=== PATIENT | female | born 1960 | race Caucasian/White ===

== ENCOUNTER 2018-07-21 07:30 | Day surgery (SDC) | payer MEDICAID ==
[2018-07-14 13:28] LABS: BASO % 0.5 % (0-6); EOS % 2.1 % (0-6); GRAN % 57.1 % (47-80); HEMATOCRIT 44.4 % (35.0-47.0); HEMOGLOBIN 14.1 gm/dl (11.6-16.0); MEAN CELL VOLUME 98.9 fl (81-97); MEAN CORPUSCULAR HEMOGLOBIN 31.4 pg (27-33); MEAN CORPUSCULAR HGB CONC 31.8 g/dl (32-36); MEAN PLATELET VOLUME 10.3 fl (7.4-10.4); MONO % 8.3 % (0-9); PLATELET COUNT 314 K/uL (130-400); RED BLOOD COUNT 4.49 M/uL (3.80-5.40); WHITE BLOOD COUNT W/O DIFF 6.7 K/uL (4.2-12.2)
[2018-07-14 13:54] LABS: BLOOD UREA NITROGEN 9 mg/dL (6-20); CREATININE 0.7 mg/dL (0.5-0.9); EST GLOMERULAR FILTRATION RATE > 60 mL/min; GLUCOSE,RANDOM 89 mg/dL (74-109)
[~2018-07-21 07:30] MED LIST: CEFAZOLIN 2 Gram 2 GM/50 ML BAG IVPB ONE; CELECOXIB 100 MG CAPSULE PO ONE; FAMOTIDINE 20MG TABLET PO ONE; MECLIZINE 25 MG TABLET PO ONE; METOCLOPRAMIDE 10 MG TABLET PO ONE
[2018-07-21] MEDS ORDERED: ROPIVACAINE HCL (NAROPIN) /PF 5MG/ML 20ML VIAL IV ONE (07:31)
[2018-07-21] MEDS ORDERED: BUPIVACAINE LIPOSOME 266MG/20ML VIAL IV ONE ×2 (07:31)
[2018-07-21] MEDS ORDERED: DEXAMETHASONE 4 MG/ML 1ML VIAL IVP ONE (07:31)
[2018-07-21] MEDS ORDERED: MIDAZOLAM HCL 2MG/2ML VIAL IV ONE (07:31)
[2018-07-21] MEDS ORDERED: BUPIVACAINE 0.25% W/EPI MPF 30ML VIAL IVP ONE (07:31)
[2018-07-21] MEDS ORDERED: LIDOCAINE 2% MDV (20MG/ML) 20ML VIAL IV ONE (07:31)
[2018-07-21] MEDS ORDERED: TRANEXAMIC ACID 1,000 MG/10 ML ML IV ONE (07:31)
[2018-07-21] MEDS ORDERED: PROPOFOL 10 MG/ML VIAL IV ONE (07:31)
[2018-07-21] MEDS ORDERED: 0.9 % SODIUM CHLORIDE 100ML 100 ML IV ONE (07:31)
[2018-07-21] MEDS ORDERED: OXYCODONE HCL/APAP 5MG/325MG TABLET PO PRN (11:14)
[2018-07-21] MEDS ORDERED: HYDROCODONE/APAP 5/325MG TABLET PO PRN ×2 (11:14)
[2018-07-21] MEDS ORDERED: ONDANSETRON HCL IV 4 MG/2 ML VIAL IVP PRN (11:15)
[2018-07-21] MEDS ORDERED: TRAMADOL HCL 50 MG TABLET PO PRN ×2 (11:15)
[2018-07-21] MEDS ORDERED: DIPHENHYDRAMINE HCL 25 MG CAPSULE PO PRN (11:15)
[2018-07-21] MEDS ORDERED: ZOLPIDEM TARTRATE 5 MG TABLET PO PRN (11:15)
[2018-07-21] MEDS ORDERED: NALOXONE 0.4 MG/1 ML VIAL IVP PRN (11:15)
[2018-07-21] MEDS ORDERED: METOCLOPRAMIDE HCL 10 MG/2 ML VIAL IVP PRN (11:15)
[2018-07-21] MEDS ORDERED: MAGNESIUM HYDROXIDE 30 ML UDC PO PRN (11:15)
[2018-07-21] MEDS ORDERED: SENNOSIDES/DOCUSATE SODIUM UD CAPSULE PO PRN (11:15)
[2018-07-21] MEDS ORDERED: AL HYDROX/MAG HYDROX 30ML UD PO PRN (11:15)
[2018-07-21] MEDS ORDERED: TRANEXAMIC ACID 1,000 MG in 0.9 % SODIUM CHLORIDE 100ML 100 ML IVPB ONE (14:00)
[2018-07-21] MEDS: HYDROMORPHONE HCL 2 MG/ML VIAL IV PRN ×2 (14:45→20:06)
[2018-07-21] MEDS: CEFAZOLIN 2 Gram 2 GM/50 ML BAG IVPB SCH (16:32)
--- NOTE | 2018-07-21 17:06 | Rehab Evaluation ---
Patient Information - Patient Information Diagnosis: L knee OA Ordered Treatment: PT Evaluate and Treat Status: Initial Evaluation Surgery: Yes (L TKA) Date of Surgery: 07/21/18 Past Medical/Surgical Hx: PAST MEDICAL/SURGICAL HISTORY Past Surgical History Hyst Shirley Causey PMH - Respiratory Hx Respiratory Disorders No PMH - Cardiovascular Hx Cardiovascular Disorders No Exercise Tolerance Good Hx of Migraines Yes: none for quite a while PMH - Neuro Hx Neurological Disorders Yes PMH - GI Hx Gastrointestinal Disorders No PMH - Hx Genitourinary Disorders No Comment: S/P Hyst PMH - Endocrine Hx Endocrine Disorders No PMH - Musculoskeletal Hx Musculoskeletal Disorders Yes Hx Arthritis Yes: left knee PMH - Psych Hx Psychiatric Problems Yes Hx Depression Yes PMH - Hematology/Oncology Hx Hematology/Oncology No Disorders Premorbid Status: Detail (The patient was independent with mobility prior to surgery.) Social History: Detail (The patient lives alone in a one story house with 2 to 3 steps at the enterance with no handrails. The patient's bathroom is equipped with a walk in shower with a hand held shower and a standard height toilet. The patient has a front wheeled walker.) Precautions: [place], Fall, Other (WBAT on the L LE.) - Time With Patient Total Time Spent With Patient (Min): 20 Treatment Procedures: Detail (Initial Evaluation) Subjective Information - Subjective Information Per Patient (The patient had complaints of L knee pain level 8 at the highest using 0- 10 pain scale.) Objective Data - Mental Status Patient Orientation: Oriented x3 - Visual Perception Appears within normal limits for therapeutic activities - ROM Not within normal limits (The patient's L knee AROM is limited s/p surgery, all other AROM was WNL.) - Strength/Tone Not within normal limits (The patient's L LE strength was not tested s/p surgery however was functional ie: the patient completed a SLR. R LE strength was intact.) - Bed Mobility Independent (supine to and from sit transfers were independent.) - Transfers Independent (Independent sit to and from stand transfers.) - Balance Balance Sitting: Good Balance Standing: Good - Sensation Intact - Gait Detail (The patient ambulated 30 feet x 1 with front wheeled walker WBAT on the L LE with supervision for safety. The patient's ambulation was limited secondary to pain.) Therapy Assessment - Therapy Assessment Detail (The patient's mobility was limited secondary to pain. Feel the patient will progress well however.) Problem List - Problem List Physical Therapy Problem List: Detail (1) L knee pain 2) Decreased L knee AROM 3 ) Decreased L LE strength) Goals - Goals Physical Therapy Goals: 1) The patient will ambulate with wheeled walker a distance of 50 plus feet independently. 2) The patient will ambulate on 3 steps using proper tecnique with supervision for safety. 3) The patient will be independent with HEP of TKA exercises. Prognosis - Prognosis Good Plan - Plan Physical Therapy Plan: 1-2 PT visits for gait training on levels and stairs and instruction in HEP.
[2018-07-21] MEDS: RINGERS SOLUTION,LACTATED 1,000 ML IV SCH (18:13)
[2018-07-21] MEDS: OXYCODONE HCL/APAP 5MG/325MG TABLET PO PRN (20:32)
[2018-07-21] MEDS ORDERED: MELATONIN 5 MG TABLET PO SCH (22:00)
[2018-07-21] MEDS: ASPIRIN 325 MG TAB ENTERIC-COATED PO SCH (22:23)
[2018-07-22] MEDS: OXYCODONE HCL/APAP 5MG/325MG TABLET PO PRN ×5 (00:30→10:24)
[2018-07-22] MEDS: HYDROMORPHONE HCL 2 MG/ML VIAL IV PRN ×4 (00:36→11:20)
[2018-07-22] MEDS: CEFAZOLIN 2 Gram 2 GM/50 ML BAG IVPB SCH ×2 (01:38→09:27)
[2018-07-22] MEDS: RINGERS SOLUTION,LACTATED 1,000 ML IV SCH (09:25)
[2018-07-22] MEDS: ASPIRIN 325 MG TAB ENTERIC-COATED PO SCH (09:28)
[2018-07-22] MEDS ORDERED: BUPROPION HCL 150 MG TAB.SR.12H PO SCH (10:00)
[2018-07-22] MEDS ORDERED: CELECOXIB 100 MG CAPSULE PO SCH (10:00)
[2018-07-22] MEDS ORDERED: ACETAMINOPHEN 325 MG TAB PO PRN (11:15)
--- NOTE | 2018-07-22 11:27 | Rehab Evaluation ---
Patient Information - Patient Information Diagnosis: L knee OA Ordered Treatment: OT Evaluate and Treat Status: Initial Evaluation Surgery: Yes (L TKA) Date of Surgery: 07/21/18 Past Medical/Surgical Hx: PAST MEDICAL/SURGICAL HISTORY Past Surgical History Hyst Shirley Causey PMH - Respiratory Hx Respiratory Disorders No PMH - Cardiovascular Hx Cardiovascular Disorders No Exercise Tolerance Good Hx of Migraines Yes: none for quite a while PMH - Neuro Hx Neurological Disorders Yes PMH - GI Hx Gastrointestinal Disorders No PMH - Hx Genitourinary Disorders No Comment: S/P Hyst PMH - Endocrine Hx Endocrine Disorders No PMH - Musculoskeletal Hx Musculoskeletal Disorders Yes Hx Arthritis Yes: left knee PMH - Psych Hx Psychiatric Problems Yes Hx Depression Yes PMH - Hematology/Oncology Hx Hematology/Oncology No Disorders Premorbid Status: Detail (The patient was independent with mobility, meal prep, laundry and home mgmt prior to surgery.) Social History: Detail (The patient lives alone in a one story house with 1 step at the entrance with no handrails. The patient's bathroom is equipped with a walk in shower with a hand held shower and a shower seat and a standard height toilet, no grab bars. The patient has walker and a cane. Her ex- will be moving back in with her and her sister will be staying for a while to assist if needed.) Precautions: [place], Fall, Other (WBAT on the L LE.) - Time With Patient Total Time Spent With Patient (Min): 35 Treatment Procedures: Detail (OT eval low complexity) Subjective Information - Subjective Information Per Patient Objective Data - Pain Pain Present: Yes (02/24) - Mental Status Patient Orientation: Oriented x3 - Visual Perception Appears within normal limits for therapeutic activities - ROM Within normal limits (Geoff UE AROM WNL) - Strength/Tone Within normal limits (Geoff UE strength WNL) - Coordination Appears within normal limits for therapeutic activities - Bed Mobility Independent (Ind with supine to sit and sit to supine.) - Transfers Independent (Ind with sit to stand from EOB.) - Balance Balance Sitting: Good Balance Standing: Good - Sensation Intact - ADL's/IADL's Detail (Pt educated and able to demonstrate learning of modified LE dressing techniques including doffing briefs and slipper socks and donning underwear, pants and tennis shoes. Pt educated re: kitchen and bathroom safety and modifications, she was able to verbalize understanding.) Therapy Assessment - Therapy Assessment Detail (Pt is Ind with modified LE dressing techniques.) Problem List - Problem List Physical Therapy Problem List: Detail (1) L knee pain 2) Decreased L knee AROM 3 ) Decreased L LE strength) Occupational Therapy Problem List: Detail (No current IP OT problems identified. ) Goals - Goals Physical Therapy Goals: 1) The patient will ambulate with wheeled walker a distance of 50 plus feet independently. 2) The patient will ambulate on 3 steps using proper tecnique with supervision for safety. 3) The patient will be independent with HEP of TKA exercises. Occupational Therapy Goals: No current IP OT goals identified. Prognosis - Prognosis Good Plan - Plan Physical Therapy Plan: 1-2 PT visits for gait training on levels and stairs and instruction in HEP. Occupational Therapy Plan: No further IP OT recommended. Thank you for this referral.
--- NOTE | 2018-07-22 11:47 | Physical Therapy Tx Note ---
Physical Therapy Tx Note - Treatment Note Tolerated: Fair Total Time Spent With Patient: 25 Physical Therapy Tx Note: Detail (The patient was in bed when PT arrived with ice on L knee. The patient had complaints of L knee pain and was tearful at times. The patient did not rate her pain using 0-10 pain scale. The patient ambulate with front wheeleed walker a distance of 60 feet x 1 WBAT on the L LE independently. The patient ambulated on steps with use of folded walker and railing using proper technique with supervison for safety. The patient ambulated with L knee in aprox 30 degrees of flexion ( Unable to acheive full extension). The patient completed the following TKA exercises: quad sets, gluteal sets, hamstring sets, ankle pumps, seated heel slides and assisted SLR using a strap. The patient was unable to acheive a SLR and had difficulty isolated quad. The patient complained of increased pain with knee extension and muscle cramping. Patient was assured quad weakness following surgery was common. The patient has met all inpatient Pt goals and is to continue with outpatient PT.) Physical Therapy Problem List: Detail (1) L knee pain 2) Decreased L knee AROM 3 ) Decreased L LE strength) Physical Therapy Goals: 1) The patient will ambulate with wheeled walker a distance of 50 plus feet independently. (Goal Met). 2) The patient will ambulate on 3 steps using proper tecnique with supervision for safety. (Goal Met). 3) The patient will be independent with HEP of TKA exercises. (Goal Met) Physical Therapy Plan: The patient is discharged from inpatient PT secondary to all PT inpatient goals have been met. The patient is to continue with outpatient PT.
--- NOTE | 2018-07-23 08:51 | Operative Note ---
DATE OF SURGERY: 07/21/2018 Surgeon: Joseph Bennett DO PREOPERATIVE DIAGNOSIS: Primary osteoarthritis of the left knee. POSTOPERATIVE DIAGNOSIS: Primary osteoarthritis of the left knee. OPERATION: Left total knee arthroplasty. DESCRIPTION OF PROCEDURE: This 58-year-old female was taken to the operating room and placed in the supine position on the operating room table. A spinal anesthetic was induced by the department of anesthesia. The left lower extremity was then elevated. It was prepped with Hibiclens and draped in the usual sterile fashion. It was exsanguinated and the tourniquet inflated to 300 mmHg. All scrub personnel wore personal isolation suits. DISCHARGE INSTRUCTIONS: An anterior longitudinal midline incision was made followed by a medial parapatellar arthrotomy incision. An intracondylar drill hole was made for the intramedullary alignment, luis and a 5-degree valgus 9 mm cut was made in the distal femur. The wafers of bone were removed. Sizing jig was affixed and size 60 was seen to be the appropriate size. Subsequently, the 4-in-1 cutting block was pinned in 3 degrees of external rotation. The appropriate cuts were made. We then directed our attention to the proximal tibia, and an extramedullary alignment guide was used to cut the proximal tibia referencing first a 10 mm cut off the medial tibial plateau, which seemed like too much bone and 8 mm was taken. Subsequently, the remnants of the menisci and osteophytes were removed from the posterior aspect of the joint. Soft tissue balancing demonstrated equal flexion and extension gaps felt to be satisfactory. We then cut the patella and restored it to anatomic height with a 34 x 7.8 trial. The tibia was sized to a 71 and the stem punch was used. Trial components inserted in the femur were a size 60 tibial baseplate, 71, and a bearing, first a 10 mm bearing which seemed slightly too loose and therefore an 11 mm bearing was placed which gave us full extension and improved stability throughout the full range of motion. All the trial components were then removed and the wound copiously irrigated with pulse lavage lactated Ringer's solution. All bony surfaces were dried. All components were cemented. Excess cement removed after the insertion of each component. Initially the tibial baseplate was cemented followed by the insertion of the tibial bearing, the femoral component, and finally the patella. Once the cement had hardened, the knee was again taken through range of motion and found to be stable. Exparel was injection into the posterior, medial and lateral corners of the joint before implantation of the components. After they were inserted and the cement hardened, the remainder was injected into the periosteum and joint capsule of the proximal tibia and distal femur. The wound was again copiously irrigated with lactated Ringer's solution. A drain was placed through a separate stab incision, and the arthrotomy incision was closed with a #2 Vicryl. The subcutaneous tissue was closed with 0 Vicryl and the skin was stapled. Sterile dressings applied with a Polar Care. The patient was taken to the recovery room in satisfactory condition. GROSS PATHOLOGY: This patient advanced full-thickness articular cartilage loss in the lateral compartment with significant degenerative disease, severe grade 3 changes noted at the patellofemoral joint with grade 3 changes noted in the medial femoral condyle as well. Final components inserted were a [employer] size 60 cruciate retaining femur, a size 71 tibial baseplate, an 11 mm anterior stabilized E1 bearing was used, and a 34 x 7.8 mm patella was used. RUBINA
--- NOTE | 2018-07-23 09:00 | Discharge Summary ---
DATE OF ADMISSION: 07/21/2018 DATE OF DISCHARGE: 07/22/2018 ADMITTING DIAGNOSIS: Osteoarthritis of the left knee. DISCHARGE DIAGNOSIS: Osteoarthritis of the left knee. OPERATIVE PROCEDURE: Elective left total knee arthroplasty. DESCRIPTION: This 58-year-old female was admitted to the hospital for total knee arthroplasty and tolerated the operative procedure well. She did receive an adductor block following the surgery but states that it did not provide any clinical relief of her symptoms. She required more narcotic pain medication than would be expected. She, however, was ambulatory and cleared physical therapy. Expected amount of pain with that. The calf is really not tender. She has no pain along the saphenous vein in the thigh and is otherwise doing well. We will allow her to be discharged. She will have outpatient physical therapy. She will wear her FELICIANO hose during the day and remove them at night. She is to take aspirin 325 mg daily for 2 weeks. She was given a prescription for Percocet 5/325 mg 1-2 every 6 hours as necessary for pain. She was given 60. In addition, she will take Naprosyn 500 mg q.12 h. and Ultram 50-100 mg q.6 h. p.r.n. pain. She will follow up in 2 weeks. Routine wound care instructions were given. Should she have any problems prior to being seen, she was instructed to call my office. RUBINA
== END 2018-07-22 15:49 | disposition home or self-care (01) ==
LOC: SUR 07:30 → MEDSURG 11:24 → SUR 07-22 15:49
PROVIDERS: ATTEND Orthopaedic Surgery
DX: M17.12 Unilateral primary osteoarthritis, left knee (principal)
CPT/HCPCS: 27447; 01402; 64447; 85025; 80048; J3490 ×3; J1170 ×2; J0690 ×2; C9290; J2795; G8978; G8979 ×2; G8980; G8987; G8988; G8989; 76942; 97110; 97530; J7120